=== PATIENT | male | born 1975 | race Two or more races ===

== ENCOUNTER 2018-04-12 16:36 | Emergency (ER) | payer OTHER ==
[~2018-04-12] VITALS: Ht 182.9 cm; Wt 101.0 kg
[2018-04-12] MEDS ORDERED: PERCOCET 5/31 TABLET PO (18:40)
[2018-04-12 18:49] VITALS: BP 136/93
== END 2018-04-12 18:53 | disposition home or self-care (01) ==
LOC: EME 16:36
PROC: 0RSKXZZ Reposition Left Shoulder Joint, External Approach (ICD-10-PCS; principal; 2018-04-12)
DX: S43.015A Anterior dislocation of left humerus, initial encounter (principal); S42.292A Other displaced fracture of upper end of left humerus, initial encounter for closed fracture; V00.211A Fall from ice-skates, initial encounter; Y93.21 Activity, ice skating; I10 Essential (primary) hypertension
CPT/HCPCS: 73030; 99281; 99285